=== PATIENT | female | born 1960 | race African-American/Black ===

== ENCOUNTER 2024-12-02 13:00 | Emergency (ER) | payer OTHER ==
[~2024-12-02] VITALS: Ht 180.3 cm; Wt 109.0 kg
[2024-12-02] MEDS: HYDROCODONE/ACETAMINOPHEN 5/325MG TABLET PO ONE (14:14)
[2024-12-02] MEDS: ONDANSETRON HCL 4MG/2ML INJ IV ONE (14:19)
[2024-12-02] MEDS: MORPHINE SULFATE 2 MG/ML INJ (NOT FOR IM USE) IV ONE (14:20)
[2024-12-02] MEDS: MORPHINE SULFATE 4 MG/ML INJ (FOR IV/IM USE) IV ONE (17:01)
[2024-12-02 17:56] VITALS: O2SAT 99
[2024-12-02] MEDS: PROPOFOL 200MG/20ML VIAL IV ONE (18:49)
[2024-12-02] MEDS: HYDRALAZINE 20MG/ML VIAL IV NR (18:56)
[2024-12-02] MEDS ORDERED: HYDR-4001 MT (20:27)
[2024-12-02] MEDS ORDERED: TOPUD MT (20:27)
[2024-12-02] MEDS ORDERED: IBUP-1525 MT (20:27)
[2024-12-02 20:55] VITALS: BP 160/80; PULSE 85; RESP 10; TEMP 36.8; O2SAT 98
== END 2024-12-02 21:08 | disposition home or self-care (01) ==
LOC: ER 13:10
DX: S43.004A Unspecified dislocation of right shoulder joint, initial encounter (principal); I10 Essential (primary) hypertension; W01.0XXA Fall on same level from slipping, tripping and stumbling without subsequent striking against object, initial encounter; Y93.89 Activity, other specified; Y92.89 Other specified places as the place of occurrence of the external cause; Y99.8 Other external cause status
CPT/HCPCS: 73030; 73060; 73080; 73090; 24600; 96374; 99152; 99285; J0360; J2405; J2704; J2270 ×2; Z7610 ×3; A6449; 94070; 94664; 94760